=== PATIENT | female | born 1955 | race Caucasian/White ===

== ENCOUNTER 2020-08-28 17:22 | Emergency (ER) | payer MEDICARE ==
[~2020-08-28] VITALS: Ht 162.6 cm; Wt 54.4 kg
--- NOTE | 2020-08-28 17:35 | NUR ---
Pt walked in ER w/ c/o waking up this morning and wanting to . Pt states she is becoming more and more forgetful and feels very lonely, and depressed. Per Pt she was evaluated by [facility] team at home and they suggested that she comes to ER, no paperwork seen to support this.
[2020-08-28] MEDS ORDERED: SERT100T PO (17:45)
[2020-08-28] MEDS ORDERED: LISI1TAB32 PO (17:45)
--- NOTE | 2020-08-28 18:03 | NUR ---
Pt is out of ER for CT.
[2020-08-28 18:06] LABS: BASOPHILS # (AUTO) 0.1 K/uL (0.0-8.0); BASOPHILS % (AUTO) 1.1 % (0.0-2.0); EOSINOPHILS # (AUTO) 0.1 K/uL (0.0-0.7); EOSINOPHILS % (AUTO) 2.1 % (0.0-7.0); HEMATOCRIT 39.9 % (31.2-41.9); HEMOGLOBIN 13.7 g/dL (10.9-14.3); LYMPHOCYTES # (AUTO) 2.2 K/uL (20.0-40.0); LYMPHOCYTES % (AUTO) 33.1 % (20.5-51.5); MEAN CORPUSCULAR HEMOGLOBIN 31.2 uug (24.7-32.8); MEAN CORPUSCULAR HGB CONC 34 g/dL (32.3-35.6); MONOCYTES # (AUTO) 0.4 K/uL (2.0-10.0); MONOCYTES % (AUTO) 5.6 % (0.0-11.0); NEUTROPHILS # (AUTO) 3.8 K/uL (1.8-8.9); NEUTROPHILS % (AUTO) 58.1 % (38.5-71.5); PLATELET COUNT (AUTO) 267 K/uL (179-408); RED BLOOD CELL COUNT(AUTO) 4.39 MIL/uL (3.63-4.92); WHITE BLOOD COUNT (AUTO) 6.6 K/uL (3.8-11.8)
[2020-08-28 18:12] LABS: CARBON DIOXIDE 29 mmol/L (21-32); CHLORIDE 103 mmol/L (98-107); CREATININE 0.9 mg/dL (0.6-1.3); GLUCOSE 117 mg/dL (74-106); POTASSIUM 3.6 mmol/L (3.5-5.1); UREA NITROGEN, BLOOD 12 mg/dL (7-18)
[2020-08-28 18:15] LABS: ETHANOL < 3 MG/DL (0-0)
[2020-08-28 18:18] LABS: ALANINE AMINOTRANSFERASE 14 U/L (14-59); ALKALINE PHOSPHATASE 79 U/L (50-136); BILIRUBIN,DIRECT 0.1 mg/dL (0.0-0.2); BILIRUBIN,TOTAL 0.2 mg/dL (0.2-1.0)
[2020-08-28 18:21] LABS: ACETAMINOPHEN < 2.0 ug/mL (10-30)
[2020-08-28 18:29] LABS: ASPARTATE AMINOTRANSFERASE 9 U/L (15-37)
[2020-08-28 18:29] LABS: *BILIRUBIN,URIN NEGATIVE (NEGATIVE); *BLOOD, URINE 2+ (NEGATIVE); *CLARITY,URINE CLEAR (CLEAR); *COLOR,URINE YELLOW (YELLOW); *KETONES,URINE NEGATIVE (NEGATIVE); LEUKOCYTE ESTERASE ,URINE NEGATIVE (NEGATIVE); NITRITE, URINE NEGATIVE (NEGATIVE); UGLUCOSE NEGATIVE (NEGATIVE)
[2020-08-28 18:40] LABS: *AMPHETAMINE, URINE NEGATIVE (NEGATIVE); *CANNABINOID, URINE NEGATIVE (NEGATIVE); *COCCAINE, URINE NEGATIVE (NEGATIVE); *OPIATE, URINE NEGATIVE (NEGATIVE); *PHENCYCLIDINE SCREEN,URINE NEGATIVE (NEGATIVE)
--- NOTE | 2020-08-28 19:00 | NUR ---
Dr Zazueta medically cleared the pt.
--- NOTE | 2020-08-28 19:03 | NUR ---
Offered dinner tray, pt decline stating not hungry.
--- NOTE | 2020-08-28 19:43 | NUR ---
Patient is resting comfortably in bed with eyes closed, NAD noted.
--- NOTE | 2020-08-28 20:25 | NUR ---
Assumed care for patient at this time. Pt is resting in bed, no signs of distress. Safety precautions in place.
[2020-08-28 23:09] LABS: BACTERIA,URINE NONE SEEN /HPF (NONE SEEN); SQUAMOUS EPITHELIAL CELL,UR FEW /HPF (NONE SEEN); WBC,URINE 0-3 /HPF (0-3)
--- NOTE | 2020-08-28 23:12 | NUR ---
Kate RN evaluated the patient and patient does not meet criteria for a hold, nor patient will benefit from in-patient hospital services at this time. Pt and PET RNN agreed for discharge to home with referrals and outpatient Psych help. Updated the nursing paper supervisor.
--- NOTE | 2020-08-29 | NUR ---
Pt has a friend who will be picking her up in the morning. Pt is unable to get transporation to home in [facility] at this time, approx > 30 miles from hospital. Pt is comfortable in bed, and not in distress at this time.
--- NOTE | 2020-08-29 00:27 | NUR ---
RN shipwright supervisor aware that patient is staying until her ride will pick her up.
--- NOTE | 2020-08-29 08:00 | NUR ---
Pt is awake, alert and oriented. Pt is eating breakfast, no acute distress noted at this time. Pt appears comfortable and is smiling.
--- NOTE | 2020-08-29 08:55 | NUR ---
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 Pt ambulated to ER waiting room with steady gait. NAD noted.
[2020-08-29 08:58] VITALS: BP 117/74
== END 2020-08-29 08:59 | disposition home or self-care (01) ==
LOC: ER 17:27
DX: F32.9 Major depressive disorder, single episode, unspecified (principal); Z86.79 Personal history of other diseases of the circulatory system; Z20.828 Contact with and (suspected) exposure to other viral communicable diseases; Z86.73 Personal history of transient ischemic attack (TIA), and cerebral infarction without residual deficits; I25.2 Old myocardial infarction
CPT/HCPCS: 36415; 70450; 71045; 85025; 93005; A4663; G0480